=== PATIENT | female | born 1960 ===

== ENCOUNTER 2024-05-15 08:06 | Day surgery (SDC) | payer MEDICARE, OTHER ==
[~2024-05-15] VITALS: Ht 162.6 cm; Wt 62.1 kg
[~2024-05-15 08:06] MED LIST: LR 1,000 ML IV SCH; Ondansetron 4 MG/2 ML VIAL IV PRN
[2024-05-15] MEDS ORDERED: fentaNYL 50 MCG/ML 2 ML VIAL ONE (09:08)
[2024-05-15] MEDS ORDERED: Lidocaine PF 2% (20 MG/ML) 5 ML VIAL ONE (09:08)
[2024-05-15 10:25] VITALS: BP 114/70; PULSE 56
[2024-05-15 10:40] VITALS: BP 110/80; PULSE 53
--- NOTE | 2024-05-15 10:43 | NUR ---
1025 PATIENT RETURNS TO [facility] VIA CART. PT AWAKE AND ALERT. RESPIRATIONS UNLABORED. AMBULATED TO RECLINER CHAIR WITH 2:1 SBA. PT DENIES NAUSEA OR ABDOMINAL PAIN. HOOKED UP TO MONITOR AND VS OBTAINED. CALL LIGHT AT SIDE AND PRESENT. 1030 PATIENT TOLERATING COFFEE AND MUFFIN WITHOUT NAUSEA OR DIFFICULTY SWALLOWING (EGD ONLY). 1035 IN ROOM SPEAKING WITH PATIENT. 1045 D/C INSTRUCTIONS REVIEWED WITH PATIENT. PT VERBALIZED UNDERSTANDING AND A COPY OF INSTRUCTIONS PROVIDED IN D/C FOLDER. 1055 PATIENT DRESSES SELF. 1105 PATIENT DISCHARGED FROM UNIT VIA W/C TO A PERSONAL VEHICLE. PT LEFT HOSPITAL IN STABLE CONDITION.
[2024-05-15 10:55] VITALS: BP 122/83; PULSE 55
[2024-05-15] MEDS ORDERED: LEADER NATUR1000 MCG (13:03)
[2024-05-15] MEDS ORDERED: VITAMIN C500 MG PO (13:04)
[2024-05-15] MEDS ORDERED: VITAMIN D31000 IU PO (13:05)
[2024-05-15] MEDS ORDERED: OSCAL 500 TAB500 MG PO (13:06)
[2024-05-15] MEDS ORDERED: LIDODERM 5% PATC1 EA TP (13:06)
[2024-05-15] MEDS ORDERED: FOSAMAX 70MG TA70 MG PO (13:07)
[2024-05-15 13:12] VITALS: BP 122/73; PULSE 62; TEMP 97.5
--- NOTE | 2024-05-15 13:16 | NUR ---
0821 Patient ambulatory to bay 4 with steady gait, breathing even and unlabored. Pt is alert and oriented, accompanied by her . Consents reviewed and signed by patient. IV established. LR infusion via gravity at KVO. Call light in reach. Warm blanket provided.
== END 2024-05-15 11:05 | disposition home or self-care (01) ==
LOC: SDCO 08:06
DX: Z12.11 Encounter for screening for malignant neoplasm of colon (principal); K63.3 Ulcer of intestine; K35.80 Unspecified acute appendicitis; K64.0 First degree hemorrhoids
CPT/HCPCS: J2704; J3010; J7120